=== PATIENT | male | born 1970 | race Caucasian/White ===

== ENCOUNTER 2020-12-26 08:10 | Emergency (ER) | payer OTHER ==
[2020-12-26 08:27] VITALS: BP 103/65; PULSE 83; TEMP 98.4; BMI 26.0
== END 2020-12-26 11:14 | disposition home or self-care (01) ==
LOC: JER 08:10
DX: J40 Bronchitis, not specified as acute or chronic (principal)
CPT/HCPCS: 71046-TC-FY; 87804; 87807; 99284-25; C9803; U0003; U0005

== ENCOUNTER 2022-04-04 21:10 | Emergency (ER) | payer OTHER ==
[2022-04-04 21:25] VITALS: BP 112/78; PULSE 90; RESP 18; TEMP 98; BMI 27.1
== END 2022-04-04 22:38 | disposition home or self-care (01) ==
LOC: JERFT 21:10
DX: H66.91 Otitis media, unspecified, right ear (principal)
CPT/HCPCS: 99283-25